=== PATIENT | male | born 1970 | race Caucasian/White ===

== ENCOUNTER → 2017-05-10 | Outpatient (REF) ==
[~2017-05-10] MED LIST: HYDR1TAB PO; LACT10SO33 PO; LOSA50TA6 PO
--- NOTE | 2017-05-10 15:03 | Diagnostic Imaging Report ---
INDICATION: Injury to right knee. AP, oblique, and lateral views of the right knee are obtained. Comparison made with 01/11/2012. There is no definite acute fracture or acute bony abnormality. The patella is somewhat high in location, but this is chronic compared to 01/11/2012. There is a joint effusion present in the suprapatellar recess. There are two calcifications seen anterior to the joint space which may represent loose bodies. IMPRESSION: The patella is somewhat high in position but this is chronic compared with 01/11/2012. There is a joint effusion present. There are two small calcifications overlying the anterior joint space on the lateral view which may be loose bodies. Dictated by: Dictated on workstation # [id number]
== END | disposition home or self-care (01) ==
LOC: OCC 14:13
PROVIDERS: ATTEND Nurse Practitioner Family
CPT/HCPCS: 73562

== ENCOUNTER 2018-08-24 18:56 | Emergency (ER) | payer OTHER ==
[~2018-08-24] VITALS: Ht 190.5 cm; Wt 72.6 kg
--- OUTSIDE RECORDS SUMMARY | 2018-08-24 19:04 | XMS REPORT | Continuity of Care Document ---
Author Author [facility] Organization [facility] Address Unknown Phone Unavailable Allergies Active Description Code Type Severity Reaction Onset Reported/Identified Relationship to Patient Clinical Status Yes ceftriaxone sodium [id number] Drug Allergy Moderate HIVES 04/23/2011 Medications There is no data. Problems Date Dx Coded Attending Type Code Diagnosis Diagnosed By 04/24/2011 Ot 401.9 04/24/2011 Ot 784.0 07/18/2011 Ot 564.00 07/18/2011 Ot 569.42 01/11/2012 Ot 836.3 01/11/2012 Ot 959.7 01/11/2012 Ot E000.0 01/11/2012 Ot E013.4 01/11/2012 Ot E849.7 01/11/2012 Ot E885.9 07/26/2014 LYNDA STUBBS DO Ot 564.00 10/02/2014 Ot 845.00 10/02/2014 Ot E000.8 10/02/2014 Ot E030 10/02/2014 Ot E849.0 10/02/2014 Ot E927.0 10/02/2014 Ot 836.3 10/02/2014 Ot E000.0 10/02/2014 Ot E928.9 10/02/2014 NIDIA ALMONTE, BHARAT Amador Ot 959.7 10/02/2014 NIDIA ALMONTE, BHARAT Amador Ot E000.8 10/02/2014 BHARAT JACOB MD Ot E849.0 10/02/2014 BHARAT JACOB MD Ot E917.9 11/16/2014 Ot 845.00 11/16/2014 Ot E000.8 11/16/2014 Ot E030 11/16/2014 Ot E849.0 11/16/2014 Ot E927.0 11/16/2014 Ot 836.3 11/16/2014 Ot E000.0 11/16/2014 Ot E928.9 11/16/2014 BHARAT JACOB MD Ot 959.7 11/16/2014 BHARAT JACOB MD Ot E000.8 11/16/2014 BHARAT JACOB MD Ot E849.0 11/16/2014 BHARAT JACOB MD Ot E917.9 07/27/2015 Ot 836.3 07/27/2015 Ot E000.0 07/27/2015 Ot E928.9 07/27/2015 BHARAT JACOB MD Ot 959.7 07/27/2015 BHARAT JACOB MD Ot E000.8 07/27/2015 BHARAT JACOB MD Ot E849.0 07/27/2015 BHARAT JACOB MD Ot E917.9 Procedures There is no data. Results There is no data. Encounters ACCT No. Visit Date/Time Discharge Status Pt. Type Provider Facility Loc./Unit Complaint [id number] 05/10/2017 14:13:00 05/10/2017 23:59:59 CLS Outpatient ENRIQUETA CORTÉS [facility] OCC INTERMIT POPPING SINCE DISLOCATION 5 YEARS AGO, NO [id number] 07/27/2015 12:39:00 07/27/2015 23:59:59 CLS Outpatient JAILYN ALMONTE, BERNARD Vidal [facility] LAB WC-PUNCTURE WOUND [id number] 07/26/2014 01:38:00 07/26/2014 02:36:00 DIS Emergency LYNDA STUBBS DO [facility] ER [id number] 07/18/2013 08:49:00 07/18/2013 23:59:59 CLS Outpatient BHARAT JACOB MD [facility] RAD [id number] 10/02/2014 16:21:00 Document Registration [id number] 01/29/2012 15:25:00 Document Registration [id number] 01/11/2012 20:52:00 Document Registration [id number] 07/18/2011 20:12:00 Document Registration [id number] 04/23/2011 22:25:00 Document Registration
[2018-08-24] MEDS ORDERED: ASPIRIN 81 MG CHEW (CHILDREN'S ASA) PO ONE (20:00)
[2018-08-24] MEDS ORDERED: NITROGLYCERIN 0.4 MG SL TABS BTL 25'S SL PRN (20:00)
[2018-08-24 20:11] LABS: BASOPHILS % (AUTO) 1 % (0-10); EOSINOPHILS # (AUTO) 0.2 10^3/uL (0.0-0.3); EOSINOPHILS % (AUTO) 3 % (0-10); HEMATOCRIT 39 % (40-54); HEMOGLOBIN 13.6 G/DL (13.3-17.7); LYMPHOCYTES # (AUTO) 1.4 X 10^3 (1.0-4.0); LYMPHOCYTES % (AUTO) 28 % (12-44); MEAN CORPUSCULAR HEMOGLOBIN 31 PG (25-34); MEAN CORPUSCULAR HGB CONC 35 G/DL (32-36); MEAN CORPUSCULAR VOLUME 89 FL (80-99); MEAN PLATELET VOLUME 9.3 FL (7.4-10.4); MONOCYTES # (AUTO) 0.4 X 10^3 (0.0-1.0); MONOCYTES % (AUTO) 8 % (0-12); NEUTROPHILS % (AUTO) 60 % (42-75); PLATELET COUNT 278 10^3/uL (130-400); RED CELL DISTRIBUTION WIDTH 12.9 % (10.0-14.5)
[2018-08-24 20:29] LABS: ALANINE AMINOTRANSFERASE 18 U/L (0-55); ALBUMIN 4.4 GM/DL (3.2-4.5); ALKALINE PHOSPHATASE 72 U/L (40-136); BILIRUBIN,TOTAL 0.4 MG/DL (0.1-1.0); BUN/CREATININE RATIO 20; CALCIUM 9.2 MG/DL (8.5-10.1); CARBON DIOXIDE 27 MMOL/L (21-32); CHLORIDE 105 MMOL/L (98-107); CREATININE SERUM 0.92 MG/DL (0.60-1.30); GFR ESTIMATED > 60; GLUCOSE 100 MG/DL (70-105); MAGNESIUM 2.5 MG/DL (1.8-2.4); POTASSIUM 4.2 MMOL/L (3.6-5.0); SODIUM 141 MMOL/L (135-145); TOTAL PROTEIN 6.9 GM/DL (6.4-8.2)
[2018-08-24 20:35] LABS: INR 1.1 (0.8-1.4); PROTHROMBIN TIME PATIENT 13.8 SEC (12.2-14.7)
[2018-08-24 20:36] LABS: MYOGLOBIN SERUM 24.7 NG/ML (10.0-92.0)
--- NOTE | 2018-08-24 21:08 | Diagnostic Imaging Report ---
INDICATION: Left anterior chest pain. COMPARISON: 07/26/2014. TECHNIQUE: Single view of the chest was obtained. FINDINGS: Stable dextrocurvature of the thoracic spine associated curvature of the mediastinum. Heart is normal in size. No pneumothorax or pleural effusion. Visualized aspects of the lungs are clear. IMPRESSION: Stable marked dextroscoliosis of the thoracic spine without acute cardiopulmonary process by portable radiography. Dictated by: Dictated on workstation # [id number]
--- NOTE | 2018-08-24 21:22 | ED Chest Pain ---
General Chief Complaint: Chest Pain Stated Complaint: L SIDE CP X 5 DAYS Nursing Triage Note: STATES X5 DAYS LEFT CHEST STATES COMES AND GOES. COMPLAINT OF NUMBNESS AND TINGLING IN AREA. 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 ARENAS Allergies and Home Medications Allergies Coded Allergies: ceftriaxone sodium (Verified Allergy, Intermediate, HIVES, 04/23/11) Home Medications Cyclobenzaprine HCl 5 Mg Tablet, 5-10 MG PO Q8H Prescribed by: LYNDA STUBBS on 08/24/182228 Hydrocodone Bit/Acetaminophen 1 Each Tablet, 1-2 EACH PO Q4HR PRN Prescribed by: NEPTALI MCMANUS on 01/11/122105 Lactulose 10 G/15 Ml Btl, 3 TSP PO TID PRN for CONSTIPATION Prescribed by: LYNDA STUBBS on 07/26/14 0228 Losartan Potassium 50 Mg Tablet, 50 MG PO DAILY, (Reported) Meloxicam 15 Mg Tablet, 15 MG PO DAILY Prescribed by: LYNDA STUBBS on 08/24/182228 Patient Home Medication List Home Medication List Reviewed: Yes Review of Systems Review of Systems Constitutional: no symptoms reported EENTM: No Symptoms Reported Respiratory: No Symptoms Reported Cardiovascular: See HPI, Chest Pain Gastrointestinal: No Symptoms Reported Genitourinary: No Symptoms Reported Musculoskeletal: see HPI Skin: no symptoms reported Psychiatric/Neurological: No Symptoms Reported Endocrine: No Symptoms Reported Hematologic/Lymphatic: No Symptoms Reported Past Cmfvjkn-Bugdrm-Zzoaxg Hx Patient Social History Alcohol Use: Denies Use Recreational Drug Use: No Smoking Status: Never a Smoker Recent Foreign Travel: No Contact w/Someone Who Travel: No Recent Infectious Disease Expo: No Recent Hopitalizations: No Immunizations Up To Date Date of Influenza Vaccine: Apr 30, 2014 Past Medical History Surgeries: Yes (PROSTATE) Eye Surgery, Vasectomy Respiratory: No Cardiac: Yes Hypertension Neurological: No Reproductive Disorders: No Gastrointestinal: Yes Chronic Constipation Musculoskeletal: Yes Scoliosis Endocrine: No Cancer: No Psychosocial: No Integumentary: No Blood Disorders: No Physical Exam Vital Signs Vital Signs - First Documented 08/24/18 19:32 Temp 98.2 Pulse 66 Resp 20 B/P (MAP) 141/60 (87) Pulse Ox 99 O2 Delivery Room Air Capillary Refill : Less Than 3 Seconds Height, Weight, BMI Height: 6'3.00" Weight: 160lbs. oz. 72.547080bf; BMI Method:Estimated General Appearance: No Apparent Distress, WD/WN, Thin HEENT: PERRL/EOMI Neck: Full Range of Motion, Normal Inspection, Non Tender, Supple; No Carotid Bruit, No JVD Respiratory: Chest Non Tender (BUT STATES IT WAS TENDER, BEFORE HE TOOK ASPIRIN ), Normal Breath Sounds, No Accessory Muscle Use, No Respiratory Distress Cardiovascular: Regular Rate, Rhythm, No Edema, No JVD, No Murmur, Normal Peripheral Pulses Gastrointestinal: Normal Bowel Sounds, No Organomegaly, No Pulsatile Mass, Non Tender, Soft Extremity: Normal Capillary Refill, Normal Inspection, Normal Range of Motion, Non Tender, No Calf Tenderness, No Pedal Edema Neurologic/Psychiatric: Alert, Oriented x3, No Motor/Sensory Deficits, Normal Mood/Affect, 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 Skin: Normal Color, Warm/Dry; No Rash Progress/Results/Core Measures Results/Orders Lab Results Laboratory Tests Test 08/24/18 20:04 Range/Units White Blood Count 5.0 4.3-11.0 10^3/uL Red Blood Count 4.39 4.35-5.85 10^6/uL Hemoglobin 13.6 13.3-17.7 G/DL Hematocrit 39 L 40-54 % Mean Corpuscular Volume 89 80-99 FL Mean Corpuscular Hemoglobin 31 25-34 PG Mean Corpuscular Hemoglobin Concent 35 32-36 G/DL Red Cell Distribution Width 12.9 10.0-14.5 % Platelet Count 278 130-400 10^3/uL Mean Platelet Volume 9.3 7.4-10.4 FL Neutrophils (%) (Auto) 60 42-75 % Lymphocytes (%) (Auto) 28 12-44 % Monocytes (%) (Auto) 8 0-12 % Eosinophils (%) (Auto) 3 0-10 % Basophils (%) (Auto) 1 0-10 % Neutrophils # (Auto) 3.0 1.8-7.8 X 10^3 Lymphocytes # (Auto) 1.4 1.0-4.0 X 10^3 Monocytes # (Auto) 0.4 0.0-1.0 X 10^3 Eosinophils # (Auto) 0.2 0.0-0.3 10^3/uL Basophils # (Auto) 0.0 0.0-0.1 10^3/uL Prothrombin Time 13.8 12.2-14.7 SEC INR Comment 1.1 0.8-1.4 Activated Partial Thromboplast Time 37 H 24-35 SEC Sodium Level 141 135-145 MMOL/L Potassium Level 4.2 3.6-5.0 MMOL/L Chloride Level 105 98-107 MMOL/L Carbon Dioxide Level 27 21-32 MMOL/L Anion Gap 9 5-14 MMOL/L Blood Urea Nitrogen 18 7-18 MG/DL Creatinine 0.92 0.60-1.30 MG/DL Estimat Glomerular Filtration Rate > 60 BUN/Creatinine Ratio 20 Glucose Level 100 70-105 MG/DL Calcium Level 9.2 8.5-10.1 MG/DL Corrected Calcium 8.9 8.5-10.1 MG/DL Magnesium Level 2.5 H 1.8-2.4 MG/DL Total Bilirubin 0.4 0.1-1.0 MG/DL Aspartate Amino Transf (AST/SGOT) 20 5-34 U/L Alanine Aminotransferase (ALT/SGPT) 18 0-55 U/L Alkaline Phosphatase 72 40-136 U/L Myoglobin 24.7 10.0-92.0 NG/ML Troponin I < 0.028 <0.028 NG/ML Total Protein 6.9 6.4-8.2 GM/DL Albumin 4.4 3.2-4.5 GM/DL My Orders Orders - LYNDA STUBBS DO Cbc With Automated Diff (08/24/18 19:55) Magnesium (08/24/18 19:55) Chest 1 View, Ap/Pa Only (2/16/19 19:55) Ekg Tracing (08/24/18 19:55) Cardiac Profile 1 (08/24/18 19:55) Comprehensive Metabolic Panel (08/24/18 19:55) Myoglobin Serum (08/24/18 19:55) Protime With Inr (08/24/18 19:55) Partial Thromboplastin Time (08/24/18 19:55) O2 (08/24/18 19:55) Monitor-Rhythm Ecg Trace Only (08/24/18 19:55) Aspirin Chewable Tablet (Baby Aspirin Ch (08/24/18 20:00) Nitroglycerin 0.4 Mg Btl 25's (Nitrostat (08/24/18 20:00) Saline Lock/Iv-Start (08/24/18 19:55) Ct Angio Chest W (08/24/18 20:50) Iohexol Injection (Omnipaque 350 Mg/Ml 1 (08/24/18 22:00) Contrast Received (Contrast Received) (08/24/18 22:00) Ns (Ivpb) (Sodium Chloride 0.9% Ivpb Bag (08/24/18 22:00) Rx-Cyclobenzaprine Tablet (Rx-Flexeril T (08/24/18 22:29) Rx-Cyclobenzaprine Tablet (Rx-Flexeril T (08/24/18 22:29) Medications Given in ED Current Medications Medications Dose Ordered Sig/Afshin Route Start Time Stop Time Status Last Admin Dose Admin Aspirin 324 mg ONCE ONCE PO 08/24/18 20:00 08/24/18 20:01 DC 08/24/18 20:16 324 MG Iohexol 150 ml ONCE ONCE IV 08/24/18 22:00 08/24/18 22:01 DC 08/24/18 22:34 125 ML Nitroglycerin 0.4 mg UD PRN SL 08/24/18 20:00 08/24/18 22:56 DC 08/24/18 20:17 0.4 MG Sodium Chloride 100 ml ONCE ONCE IV 08/24/18 22:00 08/24/18 22:01 DC 08/24/18 22:34 80 ML Vital Signs/I&O 08/24/18 08/24/18 08/24/18 08/24/18 19:32 19:42 19:42 22:34 Temp 98.2 Pulse 66 80 Resp 20 16 B/P (MAP) 141/60 (87) 131/86 (101) Pulse Ox 99 98 99 O2 Delivery Room Air Room Air Room Air Room Air Blood Pressure Mean: 87 Progress Progress Note : Progress Note NO SYMPTOMS DURING ER STAY Initial ECG Impression Date: Aug 24, 2018 Initial ECG Impression Time: 19:42 Initial ECG Rate: 64 Initial ECG Rhythm: Normal Sinus Diagnostic Imaging Comments CXR--NO ACUTE PROCESS, PER RADIOLOGIST REPORT CT CHEST ANGIOGRAM--NO ACUTE PROCESS, + SCOLIOSIS--PER RADIOLOGIST REPORT @ 2220 Reviewed: Reviewed by Me Departure Impression Primary Impression: Left-sided chest wall pain Disposition: HOME, SELF-CARE Condition: Improved Departure-Patient Inst. Referrals: YURI ARENAS MD (PCP/Family) Primary Care Physician Patient Instructions: Chest Pain That Is Not Caused by the Heart (DC), Costochondritis (DC) Add. Discharge Instructions: MOIST HEAT TO AREA AT 20 MINUTE INTERVALS FOLLOW UP WITH YOUR DR NEXT WEEK FOR RECHECK RETURN TO ER IF SYMPTOMS WORSEN All discharge instructions reviewed with patient and/or family. Voiced understanding. Scripts Meloxicam (Mobic) 15 Mg Tablet 15 MG PO DAILY, #10 TAB Prov: LYNDA STUBBS DO 08/24/18 Cyclobenzaprine HCl (Cyclobenzaprine HCl) 5 Mg Tablet 5-10 MG PO Q8H for Muscle Cramps, #15 TAB Prov: LYNDA STUBBS DO 08/24/18 LYNDA STUBBS DO Aug 24, 2018 21:22
[2018-08-24] MEDS ORDERED: NS 100 ML (IVPB) BAG IV ONE (22:00)
[2018-08-24] MEDS ORDERED: RECEIVED CONTRAST (Hold Metformin) IV SCH (22:00)
[2018-08-24] MEDS ORDERED: IOHEXOL 350 MG/ML 150 ML (OMNIPAQUE 350) VIAL IV ONE (22:00)
--- NOTE | 2018-08-24 22:15 | Diagnostic Imaging Report ---
PROCEDURE: CT angiography of the chest with contrast. TECHNIQUE: Multiple contiguous axial images were obtained through the chest after uneventful bolus administration of intravenous contrast. 2D reconstructed CTA MIP acquisitions were also performed. INDICATION: Chest pain for 5 days. COMPARISON: None available. FINDINGS: Vasculature: No pulmonary emboli. No CT evidence of pulmonary hypertension or right ventricular strain. Thoracic aorta is normal in caliber. No aortic dissection or pseudoaneurysm. Heart and mediastinum: Visualized thyroid is normal. No supraclavicular, axillary, or intra-thoracic lymphadenopathy. The heart is normal in size without pericardial effusion. Pleura: No pleural effusion or pneumothorax. Lungs and airway: No endoluminal lesion in the trachea or central bronchi. No pulmonary mass, nodule or consolidation. Upper abdomen: Allowing for the phase of contrast, no acute abnormality in the upper abdomen is seen. Musculoskeletal: Rotatory dextroscoliosis of the thoracic spine. No worrisome focal osseous lesions. IMPRESSION: 1. No acute cardiopulmonary process. Specifically, no pulmonary emboli or acute aortic syndrome. Dictated by: Dictated on workstation # [id number]
[2018-08-24] MEDS ORDERED: CYCL5TAB PO (22:29)
[2018-08-24] MEDS ORDERED: RX-CYCLOBENZAPRINE 10 MG (FLEXERIL) TAB PPK#3 PO STA (22:29)
[2018-08-24] MEDS ORDERED: RX-CYCLOBENZAPRINE 10 MG (FLEXERIL) TAB PPK#3 PO ONE (22:29)
[2018-08-24] MEDS ORDERED: MELO15TA14 PO (22:29)
[2018-08-24 22:34] VITALS: BP 131/86
== END 2018-08-24 22:44 | disposition home or self-care (01) ==
LOC: EDUNIT# 18:56 → ER 18:59
DX: R07.89 Other chest pain (principal); I10 Essential (primary) hypertension; M41.9 Scoliosis, unspecified; Z87.19 Personal history of other diseases of the digestive system; Z98.52 Vasectomy status; Z88.8 Allergy status to other drugs, medicaments and biological substances
CPT/HCPCS: 36415; 71045; 71275; 80053; 83735; 83874; 84484; 85025; 85610; 85730; 93005; 93041

== ENCOUNTER 2018-12-25 04:37 | Observation (INO) | payer OTHER ==
[~2018-12-25] VITALS: Ht 190.5 cm; Wt 70.3 kg
[2018-12-25] VITALS (12 sets, daily range): BP systolic 101–130; BP diastolic 62–82
[~2018-12-25 04:37] MED LIST changes: +CYCL5TAB PO; +MELO15TA14 PO
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
[2018-12-25] MEDS ORDERED: LACTATED RINGERS 1,000 ML IV ONE (05:06)
[2018-12-25] MEDS ORDERED: KETOROLAC 30 MG/ML VIAL IVP STA (05:06)
[2018-12-25 05:14] LABS: BASOPHILS % (AUTO) 0 % (0-10); EOSINOPHILS % (AUTO) 0 % (0-10); HEMATOCRIT 40 % (40-54); HEMOGLOBIN 13.8 G/DL (13.3-17.7); LYMPHOCYTES # (AUTO) 0.9 X 10^3 (1.0-4.0); LYMPHOCYTES % (AUTO) 7 % (12-44); MEAN CORPUSCULAR HEMOGLOBIN 31 PG (25-34); MEAN CORPUSCULAR HGB CONC 34 G/DL (32-36); MEAN CORPUSCULAR VOLUME 89 FL (80-99); MEAN PLATELET VOLUME 9.4 FL (7.4-10.4); MONOCYTES # (AUTO) 0.6 X 10^3 (0.0-1.0); MONOCYTES % (AUTO) 4 % (0-12); NEUTROPHILS # (AUTO) 11.7 X 10^3 (1.8-7.8); NEUTROPHILS % (AUTO) 88 % (42-75); PLATELET COUNT 228 10^3/uL (130-400); RED CELL DISTRIBUTION WIDTH 12.6 % (10.0-14.5); WHITE BLOOD COUNT 13.2 10^3/uL (4.3-11.0)
[2018-12-25] MEDS ORDERED: ONDANSETRON 4 MG/2 ML (SDV) Z0FRAN IVP ONE (05:15)
[2018-12-25] MEDS ORDERED: PANTOPRAZOLE 40 MG (PROTONIX) VIAL IV ONE (05:15)
--- NOTE | 2018-12-25 05:25 | ED Abdominal Pain ---
General Chief Complaint: Abdominal/GI Problems Stated Complaint: ABD PAIN,NAUSEA Source of Information: Patient Exam Limitations: No Limitations History of Present Illness Date Seen by Provider: Dec 25, 2018 Time Seen by Provider: 04:55 Initial Comments PT ARRIVES VIA POV C/O EPIGASTRIC ABDOMINAL PAIN SINCE 1700 YESTERDAY PAIN IS CONSTANT AND GRADUALLY GETTING WORSE NO RADIATION OF PAIN NOTHING WORSENS OR IMPROVES PAIN HAS HAD MILD NAUSEA OFF AND ON, NO VOMITING NO DIARRHEA OR CONSTIPATION, HAD NORMAL BM AT 2300 NO PROBLEMS URINATING NO RELIEF WITH TUMS OR PEPTO BISMOL ATE SMALL MEAL/SNACKS AT 2000, HAD REGULAR LUNCH AND DINNER ( SAME THING ) NO ONE ELSE IS ILL AND OTHERS ATE SAME NO HISTORY OF GI PROBLEMS PT WORKED TONIGHT AT GOT OFF WORK AT 0200 ( WORKS HERE IN HOUSEKEEPING) AND PAIN HAS STEADILY INCREASED. PCP: DR. ARENAS Allergies and Home Medications Allergies Coded Allergies: ceftriaxone sodium (Verified Allergy, Intermediate, HIVES, 04/23/11) Home Medications Cyclobenzaprine HCl 5 Mg Tablet, 5-10 MG PO Q8H Prescribed by: LYNDA STUBBS on 08/24/182228 Hydrocodone Bit/Acetaminophen 1 Each Tablet, 1-2 EACH PO Q4HR PRN Prescribed by: NEPTALI MCMANUS on 01/11/12 210 Lactulose 10 G/15 Ml Btl, 3 TSP PO TID PRN for CONSTIPATION Prescribed by: LYNDA STUBBS on 07/26/14 0228 Losartan Potassium 50 Mg Tablet, 50 MG PO DAILY, (Reported) Meloxicam 15 Mg Tablet, 15 MG PO DAILY Prescribed by: LYNDA STUBBS on 08/24/182228 Review of Systems Review of Systems Constitutional: no symptoms reported Respiratory: No Symptoms Reported Cardiovascular: No Symptoms Reported Gastrointestinal: See HPI, Abdominal Pain; Denies Constipated, Denies Diarrhea; Nausea; Denies Vomiting Genitourinary: No Symptoms Reported Musculoskeletal: no symptoms reported Skin: no symptoms reported Psychiatric/Neurological: No Symptoms Reported Endocrine: No Symptoms Reported Hematologic/Lymphatic: No Symptoms Reported Past Mhxztle-Imeesb-Miaxqr Hx Patient Social History Alcohol Use: Denies Use Recreational Drug Use: No Smoking Status: Never a Smoker Recent Foreign Travel: No Contact w/Someone Who Travel: No Recent Hopitalizations: No Immunizations Up To Date Date of Influenza Vaccine: Apr 30, 2014 Past Medical History Surgeries: Yes (PROSTATE SURGERY ) Eye Surgery, Vasectomy Respiratory: No Cardiac: Yes Hypertension Neurological: No Reproductive Disorders: No Genitourinary: Yes Prostate Problems Gastrointestinal: Yes Chronic Constipation Musculoskeletal: Yes Scoliosis Endocrine: No HEENT: No Cancer: No Psychosocial: No Integumentary: No Blood Disorders: No Physical Exam Vital Signs Capillary Refill : Height/Weight/BMI Height: 6'3.00" Weight: 160lbs. oz. 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, no motor/sensory deficits, alert, normal mood/affect, oriented x 3 Skin: normal color, warm/dry Progress/Results/Core Measures Results/Orders My Orders Orders - LYNDA STUBBS DO Ed Iv/Invasive Line Start (12/25/18 05:06) Ct Abd/Pelv W (Appendicitis) (12/25/18 05:06) Acute Abd Series (12/25/18 05:06) Amylase (12/25/18 05:06) Cbc With Automated Diff (12/25/18 05:06) Comprehensive Metabolic Panel (12/25/18 05:06) Lipase (12/25/18 05:06) Ua Culture If Indicated (12/25/18 05:06) Zofran Iv (12/25/18 05:15) Ed Iv/Invasive Line Start (12/25/18 05:06) Lr 1000ml Iv (12/25/18 05:06) Toradol 30 Mg Ivp (12/25/18 05:06) Pantoprazole Injection (Protonix Injecti (12/25/18 05:15) Departure Departure-Patient Inst. Referrals: YURI ARENAS MD (PCP/Family) Primary Care Physician LYNDA STUBBS DO Dec 25, 2018 05:25
[2018-12-25 05:26] LABS: ALANINE AMINOTRANSFERASE 18 U/L (0-55); ALBUMIN 4.9 GM/DL (3.2-4.5); ALKALINE PHOSPHATASE 85 U/L (40-136); AMYLASE 53 U/L (25-125); BILIRUBIN,TOTAL 0.6 MG/DL (0.1-1.0); BUN/CREATININE RATIO 17; CALCIUM 9.7 MG/DL (8.5-10.1); CARBON DIOXIDE 22 MMOL/L (21-32); CHLORIDE 103 MMOL/L (98-107); CREATININE SERUM 0.96 MG/DL (0.60-1.30); GFR ESTIMATED > 60; GLUCOSE 109 MG/DL (70-105); LIPASE 24 U/L (8-78); POTASSIUM 3.8 MMOL/L (3.6-5.0); SODIUM 138 MMOL/L (135-145); TOTAL PROTEIN 7.5 GM/DL (6.4-8.2)
[2018-12-25 06:44] LABS: BACTERIA,URINE NEGATIVE /HPF; BILIRUBIN,URINE NEGATIVE (NEGATIVE); CLARITY,URINE CLEAR; COLOR,URINE YELLOW; GLUCOSE, URINE (UA) NEGATIVE (NEGATIVE); KETONES,URINE 1+ (NEGATIVE); LEUKOCYTE ESTERASE ,URINE NEGATIVE (NEGATIVE); NITRITE,URINE NEGATIVE (NEGATIVE); PH,URINE 5 (5-9); PROTEIN,URINE NEGATIVE (NEGATIVE); RBC,URINE RARE /HPF; SQUAMOUS EPITHELIAL CELL,UR RARE /HPF; UROBILINOGEN,URINE NORMAL (NORMAL)
--- NOTE | 2018-12-25 07:10 | NUR ---
REPORT FROM DARLINE DAVIES.
--- NOTE | 2018-12-25 07:20 | Diagnostic Imaging Report ---
INDICATION: Nausea and vomiting. FINDINGS: There is rather severe S-type scoliosis. The lungs are well-aerated and clear. There is no free air under the diaphragm. Upright and supine abdomen shows normal stool and gas pattern. No evidence of distended bowel loops. No air-fluid levels. No evidence of constipation. There is contrast within the kidneys and bladder from previous CT scan. IMPRESSION: Scoliosis, otherwise normal abdomen series. Dictated by: Dictated on workstation # [id number]
--- NOTE | 2018-12-25 07:22 | Diagnostic Imaging Report ---
PROCEDURE: CT abdomen and pelvis with contrast, rule out appendicitis. TECHNIQUE: Multiple contiguous axial images were obtained through the abdomen and pelvis after the administration of intravenous contrast. INDICATION: Abdominal pain. FINDINGS: The lung bases are clear. Liver appears normal. Gallbladder and bile ducts are normal. The pancreas and spleen are normal. Adrenal glands are normal. The kidneys are normal. There is normal enhancement of the abdominal organs and vessels. The stomach and small bowel are not distended. There is considerable stool present throughout the colon from the cecum to the rectum. There is no evidence of obstructive process. The appendix is distended and fluid-filled measuring 13 mm in diameter. There is adjacent edema. There is an appendicolith as well. The bladder is distended. There is no free air or free fluid. No intra-abdominal adenopathy. No bony abnormalities. IMPRESSION: Findings are consistent with acute appendicitis. Dictated by: Dictated on workstation # [id number]
[2018-12-25] MEDS ORDERED: PIPERACILLIN/TAZO 4.5 GM/NS 100 ML IV ONE ×2 (08:20)
--- NOTE | 2018-12-25 09:25 | NUR ---
RAFI JERONIMO admitted to room 408-1, with an admitting diagnosis of APPENDICITIS, on 12/25/18 from ED via , accompanied by STAFF AND FAMILY. RAFI JERONIMO introduced to surroundings, call light, bed controls, phone, TV, temperature control, lights, meal times, smoking policy, visitor policy, side rail policy, bathrooms and showers. Patient Rights given to patient in the handbook. RAFI JERONIMO verbalizes understanding that [facility] is not responsible for the loss or damage to any personal effects or valuables that are kept in the patients posession during their hospitalization. RAFI JERONIMO verbalizes understanding of Interdisciplinary Patient Education. Patient and/or family were informed about the Rapid Response Team and its purpose.
[2018-12-25] MEDS ORDERED: D5 1/2 NS W/KCL 20 MEQ/L 1,000 ML IV ONE (09:36)
[2018-12-25] MEDS ORDERED: BUP/EPI 0.5% 1:200,000 (SENSORCAINE) 30 ML VIAL ONE (10:30)
[2018-12-25] MEDS ORDERED: LIDOCAINE 1% INJ 20 ML 20 ML VIAL ONE (10:30)
[2018-12-25] MEDS ORDERED: ONDANSETRON 4 MG/2 ML (SDV) Z0FRAN ONE (10:53)
[2018-12-25] MEDS ORDERED: proPOfol 200 MG/20 ML (DIPRIVAN) VIAL IV ONE (10:53)
[2018-12-25] MEDS ORDERED: fentaNYL INJECTION 100 MCG/2 ML AMP ONE ×2 (10:53→11:19)
[2018-12-25] MEDS ORDERED: SUCCINYLCHOLINE INJ 100 MG/5 ML SYR ONE (10:53)
[2018-12-25] MEDS ORDERED: ROCURONIUM 10 MG/ML 5 ML SYRINGE IV ONE (10:53)
[2018-12-25] MEDS ORDERED: MIDAZOLAM 2 MG/2 ML (VERSED) VIAL ONE (10:54)
[2018-12-25] MEDS ORDERED: LIDOCAINE PF 2% 5 ML (XYLOCAINE) VIAL ONE (10:54)
[2018-12-25] MEDS ORDERED: DESFLURANE (SUPRANE) 15 ML INHAL SOLN ONE (10:54)
[2018-12-25] MEDS: fentaNYL INJECTION 100 MCG/2 ML AMP IV PRN ×2 (11:35→18:43)
[2018-12-25] MEDS ORDERED: NS (IVPB) 50 ML ONE (12:20)
[2018-12-25] MEDS ORDERED: metroNIDAZOLE 500MG/100ML IVPB 100 ML ONE (12:20)
[2018-12-25] MEDS ORDERED: ceFAZolin INJECTION 1,000 MG ONE (12:20)
[2018-12-25] MEDS ORDERED: LACTATED RINGERS 1,000 ML IV SCH (12:30)
[2018-12-25] MEDS ORDERED: ceFAZolin INJECTION 1,000 MG in WATER (STERILE) FOR INJECTION 10 ML IV ONE (12:30)
[2018-12-25] MEDS ORDERED: CATHETER FLUSH 10 ML SYR IV PRN (12:30)
[2018-12-25] MEDS ORDERED: ONDANSETRON 4 MG/2 ML (SDV) Z0FRAN IV PRN ×2 (12:30→17:00)
[2018-12-25] MEDS ORDERED: metroNIDAZOLE 500MG/100ML IVPB 100 ML IV ONE (12:30)
[2018-12-25] MEDS ORDERED: PIPERACILLIN/TAZOBACTAM (BULK) 4.5 GM in NS (IVPB) 100 ML IV ONE (13:00)
[2018-12-25] MEDS ORDERED: GLYCOPYRROLATE 0.2 MG/ML (ROBINUL) 2 ML VIAL ONE (13:41)
[2018-12-25] MEDS ORDERED: NEOSTIGMINE 1 MG/ML 5 ML SYRINGE ONE (13:41)
[2018-12-25] MEDS ORDERED: LACTATED RINGERS 1,000 ML IV PRN (13:45)
[2018-12-25] MEDS ORDERED: MEPERIDINE (DEMEROL) INJ 50 MG/ML IVP ONE (14:15)
[2018-12-25] MEDS ORDERED: HYDROmorphone 2 MG/ML VIAL (DILAUDID) IV ONE (14:15)
[2018-12-25] MEDS ORDERED: morphine INJ 10 MG/ML 1ML (SYR OR VIAL) IVP ONE (14:15)
[2018-12-25] MEDS ORDERED: PROMETHAZINE INJ 25 MG/ML (PHENERGAN) AMP IVP ONE (14:15)
[2018-12-25] MEDS ORDERED: ONDANSETRON 4 MG/2 ML (SDV) Z0FRAN IVP PRN (14:15)
--- NOTE | 2018-12-25 14:49 | Anesthesia-General Post-Op ---
General Patient Condition Mental Status/LOC: Same as Preop Cardiovascular: Satisfactory Nausea/Vomiting: Absent Respiratory: Satisfactory Pain: Controlled Complications: Absent Post Op Complications Complications None Follow Up Care/Instructions Patient Instructions None needed. Anesthesia/Patient Condition Patient Condition Patient is doing well, no complaints, stable vital signs, no apparent adverse anesthesia problems. MARLINE BARRETO DO Dec 25, 2018 14:49
[2018-12-25] MEDS ORDERED: PIPERACILLIN/TAZO 4.5 GM/NS 100 ML IV SCH ×2 (15:00)
[2018-12-25] MEDS ORDERED: LOSA100T57 PO (16:25)
--- NOTE | 2018-12-25 16:25 | NUR ---
PATIENT STATES THE ONLY MEDICATION HE IS CURRENTLY TAKING IS LOSARTAN 50MG DAILY IN THE EVENING. I CALLED [facility] AND VERIFIED THEY FILLED: 07-26-18 LOSARTAN 100MG 1/2 TAB DAILY #90 TABLETS
--- NOTE | 2018-12-25 17:03 | Progress Note-Post Operative ---
Post-Operative Progess Note Surgeon (s)/Air Traffic Control Specialist (s) Surgeon ASH GUADALUPE DO Air Traffic Control Specialist: na Pre-Operative Diagnosis appendicitis Post-Operative Diagnosis same Procedure & Operative Findings Date of Procedure 12/25/18 Procedure Performed/Findings lap appy Anesthesia Type gen Estimated Blood Loss Estimated blood loss (mL): min Specimens/Packing Specimens Removed appendix ASH GUADALUPE DO Dec 25, 2018 17:03
[2018-12-25] MEDS: LACTATED RINGERS 1,000 ML IV SCH (18:42)
[2018-12-25] MEDS: HYDROcodone/APAP 5 MG/325 MG (LORTAB) TAB PO PRN ×2 (18:43→23:02)
[2018-12-26 00:15] VITALS: BP 112/66
[2018-12-26] MEDS ORDERED: PIPERACILLIN/TAZO 4.5 GM/NS 100 ML IV SCH ×2 (01:00)
--- NOTE | 2018-12-26 01:34 | OPERATIVE REPORT ---
DATE OF SERVICE: 12/25/2018 PREOPERATIVE DIAGNOSIS: Acute appendicitis, right lower quadrant abdominal pain. POSTOPERATIVE DIAGNOSIS: Acute appendicitis, right lower quadrant abdominal pain. PROCEDURE: Laparoscopic appendectomy. SURGEON: Ash Kraus DO ANESTHESIA: General. ESTIMATED BLOOD LOSS: Minimal. COMPLICATIONS: None. INDICATIONS: The patient is a 48-year-old male who presented to the Emergency Department with abdominal pain on exam and radiological imaging consistent with appendicitis. The patient was discussed risks and benefits of procedure and wished to proceed with procedure. Consent was signed in the chart. The patient was taken to the operating suite, was prepped and draped in sterile fashion. Timeout was performed. A 12 mm incision made just above the umbilicus and cautery used to dissect down to the fascia, which was then scored, grasped and elevated. The abdomen was then entered. A 0 Vicryl was placed in a [id number] fashion for closure at the end of the case. A balloon trocar was inserted into the abdomen and pneumoperitoneum was achieved. Under direct visualization of the laparoscope, a 5 mm trocar was placed in the suprapubic region and a 5 mm trocar was placed in left lower quadrant. Multiple adhesions present in the right lower quadrant. The appendix was retrocecal and the ileum was severely adhered as well to the right gutter. The ileum had to be taken down with both blunt and LigaSure dissection. The adhesions in the right gutter was then continued to be dissected off in order to get the cecum to be mobilized for the appendix was able to be visualized. The appendix was then visualized. It was swollen, erythematous with phlegmon around it. It was grasped, elevated and continued to be mobilized until the base of the appendix was able to be visualized. A [place] was then used to dissect around the base of the appendix and the Endo-JANIS 2.5 stapler was then fired across the base of the appendix. LigaSure was then used to dissect close to the appendix, the appendix from the mesoappendix. Hemostasis was achieved. Copious amount of irrigation was used to irrigate and suction. Hemostasis was achieved. The appendix was placed in an Endobag and removed through the 12 mm trocar site. The abdomen again was reinspected noting no other pathology and hemostasis being achieved. The abdomen was then desufflated. The trocars were removed. A 0 Vicryl was placed at the beginning of the case, was then tied closing the 12 mm fascial defect. The skin was then closed using 4-0 Monocryl in a subcuticular fashion. The abdomen was then washed and dried and Skin Affix was placed over the incisions. The patient tolerated procedure well without any complications, was taken to recovery room in stable condition. Job ID: [id number] DocumentID: [id number] Dictated Date: 12/25/2018 21:10:27 Pipe Fitter Maintenance Date: 12/26/2018 01:34:06 Dictated By: ASH KRAUS DO
[2018-12-26] MEDS: LACTATED RINGERS 1,000 ML IV SCH (01:46)
[2018-12-26] MEDS: fentaNYL INJECTION 100 MCG/2 ML AMP IV PRN ×2 (01:59→04:00)
[2018-12-26] MEDS: HYDROcodone/APAP 5 MG/325 MG (LORTAB) TAB PO PRN (04:00)
[2018-12-26 04:46] VITALS: BP 103/61
[2018-12-26 08:00] VITALS: BP 110/62
[2018-12-26] MEDS ORDERED: DOCU-143 PO (08:07)
[2018-12-26] MEDS ORDERED: ACHD5005 PO (08:07)
--- NOTE | 2018-12-26 08:09 | Discharge Inst-Simple/Standard ---
Discharge Inst-Standard Discharge Medications New, Converted or Re-Newed RX: RX on Chart Patient Instructions/Follow Up Plan of Care/Instructions/FU: 2 weeks Kraus Activity as Tolerated: No Discharge Diet: Regular Diet Other Inst to Patient Follow up Appt: Make appointment for 2 week. Instructions: No lifting greater than 10 pounds. No strenuous activity. May shower in 24 hours, no tub bath or soaking. Use incentive spirometer at home as directed. No Smoking Skin/Wound Care: You have special glue over incisions it will fall off on its own. Symptoms to Report: Appetite Changes, Extremity Discoloration, Numbness/Tingling, Swelling Increased, Bleeding Excessive, Eyesight Changes, Pain Increased, Urine Color Change, Constipation(Persistent), Fever over 101 degree F, Pain/Pressure in chest, Urinating Difficulty, Cough Up/Vomit Blood, Heart Beat Irreg/Pounding, Pain/Pressure in jaw, Vaginal Bleeding Increase, Cramps in feet or legs, Lightheadedness, Pain/Pressure in shoulder, Diarrhea(Persistent), Memory Changes Suddenly, Questions/Concerns, Weight gain consecutive days, Dizziness/Fainting, Nausea/Vomiting, Shortness of Breath, Weight gain over 2 pounds If questions or concerns contact your physician Or seek help at emergency department. ASH KARUS DO Dec 26, 2018 08:09
--- NOTE | 2018-12-26 08:14 | Progress Note ---
Subjective Date Seen by a Provider: Dec 26, 2018 Time Seen by a Provider: 08:09 Subjective/Events-last exam patient pain controlled. feeling better. tolerating diet wanting to go home denies n/v fever sweats chills shortness of breath or chest pain Objective Exam Vital Signs Date Time Temp Pulse Resp B/P (MAP) Pulse Ox O2 Delivery O2 Flow Rate FiO2 12/26/18 04:46 98.3 51 18 103/61 (75) 96 Room Air 12/26/18 00:15 98.5 53 17 112/66 (81) 98 Room Air 12/25/18 21:06 Room Air 12/25/18 20:39 96.4 54 20 116/67 (83) 100 Room Air 12/25/18 20:00 100 Room Air 10.00 12/25/18 19:52 Room Air 12/25/18 16:18 96.6 60 20 101/63 (76) 99 Room Air 12/25/18 15:19 55 18 114/69 (84) 98 Room Air 12/25/18 15:00 98.2 14 99 Room Air 12/25/18 14:50 14 99 Room Air 12/25/18 14:40 13 99 Room Air 12/25/18 14:30 12 100 Room Air 12/25/18 14:20 14 100 Room Air 12/25/18 14:10 14 100 OxyMask 10 12/25/18 14:07 97.0 16 100 OxyMask 10 12/25/18 12:00 98.0 63 20 130/72 (91) 100 Room Air 12/25/18 09:25 97.8 63 20 130/82 (98) 100 Room Air 12/25/18 09:17 64 18 143/91 (108) 98 Room Air I & O 12/26/18 07:00 Intake Total 5320 ml Output Total 400 ml Balance 4920 ml Capillary Refill : Less Than 3 SecondsLess Than 3 Seconds General Appearance: No Apparent Distress, Chronically ill Neck: Supple Respiratory: Chest Non Tender, No Accessory Muscle Use, No Respiratory Distress Cardiovascular: Regular Rate, Rhythm Gastrointestinal: soft; No distended, No guarding, No rebound; tenderness (incisional) Neurologic/Psychiatric: Alert, Oriented x3, No Motor/Sensory Deficits, Normal Mood/Affect Skin: Normal Color, Warm/Dry Lymphatic: No Adenopathy Assessment/Plan Assessment/Plan Assessment/Plan rlq abd pain appendicitis s/p lap appendectomy doing well tolerating diet incentive spirometry dc home today Final Diagnosis rlq abd pain appendicitis s/p lap appendectomy Clinical Quality Measures DVT/VTE Risk/Contraindication: Risk Factor Score Per Nursin RFS Level Per Nursing on Admit: 3=High ASH GUADALUPE DO Dec 26, 2018 08:14
== END 2018-12-26 10:46 | disposition home or self-care (01) ==
LOC: EDUNIT# 04:37 → ER 04:39 → 4TH 09:00
PROVIDERS: ADMIT Surgery; ATTEND Surgery
DX: K35.80 Unspecified acute appendicitis (principal); I10 Essential (primary) hypertension; Z79.899 Other long term (current) drug therapy
CPT/HCPCS: 36415; 74022; 74177; 80053; 81000; 82150; 83690; 85025; 94664; 96365; 96375

== ENCOUNTER 2020-05-25 08:52 | Emergency (ER) | payer OTHER ==
[~2020-05-25 08:52] MED LIST changes: +ACHD5005 PO; +DOCU-143 PO; +LOSA100T57 PO
== END 2020-05-25 09:13 | disposition home or self-care (01) ==
LOC: EDUNIT# 08:52 → ER 08:54
DX: R05 Cough (principal); R51.9 Headache, unspecified

== ENCOUNTER 2020-11-08 13:29 | Emergency (ER) | payer OTHER ==
[~2020-11-08] VITALS: Ht 190 cm; Wt 72.5 kg
[2020-11-08 13:55] LABS: BASOPHILS # (AUTO) 0.1 10^3/uL (0.0-0.1); BASOPHILS % (AUTO) 1 % (0-10); EOSINOPHILS # (AUTO) 0.2 10^3/uL (0.0-0.3); EOSINOPHILS % (AUTO) 2 % (0-10); HEMATOCRIT 41 % (40-54); HEMOGLOBIN 13.4 g/dL (13.3-17.7); LYMPHOCYTES # (AUTO) 2.5 10^3/uL (1.0-4.0); LYMPHOCYTES % (AUTO) 31 % (12-44); MEAN CORPUSCULAR HEMOGLOBIN 31 pg (25-34); MEAN CORPUSCULAR HGB CONC 33 g/dL (32-36); MEAN CORPUSCULAR VOLUME 93 fL (80-99); MEAN PLATELET VOLUME 9.4 fL (9.0-12.2); MONOCYTES # (AUTO) 0.6 10^3/uL (0.0-1.0); MONOCYTES % (AUTO) 8 % (0-12); NEUTROPHILS # (AUTO) 4.6 10^3/uL (1.8-7.8); NEUTROPHILS % (AUTO) 57 % (42-75); PLATELET COUNT 288 10^3/uL (130-400); WHITE BLOOD COUNT 8.1 10^3/uL (4.3-11.0)
--- NOTE | 2020-11-08 13:56 | ED Fall/Injury ---
General Chief Complaint: Trauma-Non Activation Stated Complaint: FALL FROM CHAIR Source: patient Exam Limitations: no limitations (RAMON PAYNE) History of Present Illness Date Seen by Provider: November 08, 2020 Time Seen by Provider: 13:33 Initial Comments Patient presents ER by EMS from home with chief complaint that he was on a chair putting some nails and lost his balance fell backwards struck the back of his head and has a small laceration which is now hemostatic. This happened just prior to arrival. He denies loss of consciousness. Is having no pain in his neck. He does not tremendous amount of pain in his left hip that he landed on and has difficulty with moving it. No prior injury or surgery there. He has a history of hypertension does not take blood thinners. He rates the pain as an 8 out of 10 at rest and 10 out of 10 when moving. (RAMON PAYNE) Allergies and Home Medications Allergies Coded Allergies: ceftriaxone sodium (Verified Allergy, Intermediate, HIVES, 04/23/11) Home Medications Docusate Sodium 100 Mg Capsule, 100 MG PO BID Prescribed by: ASH GUADALUPE on 12/26/18 0807 Hydrocodone Bit/Acetaminophen 1 Tab Tab, 1-2 TAB PO Q6H PRN for PAIN-MODERATE Prescribed by: ASH GUADALUPE on 12/26/18 0807 Losartan Potassium 100 Mg Tablet, 50 MG PO HS, (Reported) TAKES 1/2 (100MG) TABLET Patient Home Medication List Home Medication List Reviewed: Yes (RAMON PAYNE) Review of Systems Review of Systems Constitutional: No chills, No diaphoresis Eyes: Denies Blindness, Denies Blurred Vision Ears, Nose, Mouth, Throat: denies ear pain, denies ear discharge Respiratory: No cough, No hemoptysis Cardiovascular: No chest pain, No palpitations Gastrointestinal: No abdominal pain, No nausea, No vomiting Genitourinary: No discharge, No dysuria Musculoskeletal: No back pain; joint pain (RAMON PAYNE) All Other Systems Reviewed Negative Unless Noted: Yes (RAMON PAYNE) Past Ujncgvz-Pxwoay-Zfhuxe Hx Patient Social History Alcohol Use: Denies Use Smoking Status: Never a Smoker Recent Hopitalizations: No (RAMON PAYNE) Immunizations Up To Date Date of Influenza Vaccine: Apr 30, 2014 (RAMON PAYNE) Past Medical History Surgeries: Yes (PROSTATE SURGERY ) Eye Surgery, Vasectomy Respiratory: No Cardiac: Yes Hypertension Neurological: No Reproductive Disorders: No Genitourinary: Yes Prostate Problems Gastrointestinal: Yes Chronic Constipation Musculoskeletal: Yes Scoliosis Endocrine: No HEENT: No Cancer: No Psychosocial: No Integumentary: No Blood Disorders: No (RAMON PAYNE) Physical Exam Vital Signs Vital Signs - First Documented 11/08/20 13:30 Temp 35.2 Pulse 79 Resp 18 B/P (MAP) 158/94 (115) Pulse Ox 100 O2 Delivery Room Air (LUIS FREITAS MD) Vital Signs Capillary Refill : (RAMON PAYNE) Height, Weight, BMI Height: 6'3.00" Weight: 155lbs. 0.0oz. [id number]; 19.4 BMI Method:Stated General Appearance: moderate distress, thin HEENT: PERRL/EOMI (3 mm bilateral reactive symmetric), normal ENT inspection (Negative for raygoza sign or raccoon eyes), TMs normal (Negative hemotympanum), pharynx normal Neck: non-tender, full range of motion, normal inspection Cardiovascular: normal peripheral pulses, regular rate, rhythm, no edema Respiratory: lungs clear, normal breath sounds, no respiratory distress, no accessory muscle use Peripheral Pulses: 2+ Dorsalis Pedis (R), 2+ Left Dors-Pedis (L) Gastrointestinal: normal bowel sounds, non tender, soft Extremities: normal capillary refill, other (Tenderness to palpation over the left femur) Neurologic/Psychiatric: no motor/sensory deficits, alert, normal mood/affect, oriented x 3 Skin: normal color, warm/dry, other (Occipital laceration approximately a 2-1/2 cm hemostatic) (RAMON PAYNE) [place] Coma Score Best Eye Response: (4) Open Spontaneously Best Verbal Response: (5) Oriented Best Motor Response: (6) Obeys Commands [place] Total: 15 (RAMON PAYNE) Procedures/Interventions Wound Location: Scalp Other Wound Location occiput Wound Length (cm): 2.5 Wound's Depth, Shape: linear, sub Q Wound Explored: no foreign body removed Irrigated w/ Saline (ccs): 100 Betadine Prep?: Yes Anesthesia: 1% Lidocaine Volume Anesthetic (ccs): 1 Staple Repair: Stapler 35W Number of Sutures: 4 (RAMON PAYNE) Progress/Results/Core Measures Results/Orders Lab Results Laboratory Tests Test 11/08/20 13:40 11/08/20 21:05 Range/Units White Blood Count 8.1 10.1 4.3-11.0 10^3/uL Red Blood Count 4.36 3.58 L 4.30-5.52 10^6/uL Hemoglobin 13.4 11.0 L 13.3-17.7 g/dL Hematocrit 41 32 L 40-54 % Mean Corpuscular Volume 93 90 80-99 fL Mean Corpuscular Hemoglobin 31 31 25-34 pg Mean Corpuscular Hemoglobin Concent 33 34 32-36 g/dL Red Cell Distribution Width 12.5 12.4 10.0-14.5 % Platelet Count 288 203 130-400 10^3/uL Mean Platelet Volume 9.4 9.2 9.0-12.2 fL Immature Granulocyte % (Auto) 1 1 % Neutrophils (%) (Auto) 57 84 H 42-75 % Lymphocytes (%) (Auto) 31 7 L 12-44 % Monocytes (%) (Auto) 8 8 0-12 % Eosinophils (%) (Auto) 2 0 0-10 % Basophils (%) (Auto) 1 0 0-10 % Neutrophils # (Auto) 4.6 8.5 H 1.8-7.8 10^3/uL Lymphocytes # (Auto) 2.5 0.7 L 1.0-4.0 10^3/uL Monocytes # (Auto) 0.6 0.8 0.0-1.0 10^3/uL Eosinophils # (Auto) 0.2 0.0 0.0-0.3 10^3/uL Basophils # (Auto) 0.1 0.0 0.0-0.1 10^3/uL Immature Granulocyte # (Auto) 0.1 0.1 0.0-0.1 10^3/uL Sodium Level 139 135-145 MMOL/L Potassium Level 3.3 L 3.6-5.0 MMOL/L Chloride Level 102 98-107 MMOL/L Carbon Dioxide Level 23 21-32 MMOL/L Anion Gap 14 5-14 MMOL/L Blood Urea Nitrogen 14 7-18 MG/DL Creatinine 0.89 0.60-1.30 MG/DL Estimat Glomerular Filtration Rate > 60 BUN/Creatinine Ratio 16 Glucose Level 95 70-105 MG/DL Calcium Level 9.2 8.5-10.1 MG/DL Corrected Calcium 8.5-10.1 MG/DL Total Bilirubin 0.8 0.1-1.0 MG/DL Aspartate Amino Transf (AST/SGOT) 26 5-34 U/L Alanine Aminotransferase (ALT/SGPT) 36 0-55 U/L Alkaline Phosphatase 72 40-136 U/L Total Protein 7.4 6.4-8.2 GM/DL Albumin 4.6 H 3.2-4.5 GM/DL Neutrophils % (Manual) 85 % Lymphocytes % (Manual) 7 % Monocytes % (Manual) 8 % Blood Morphology Comment NORMAL (LUIS FREITAS MD) My Orders Orders - LUIS FREITAS MD Cbc With Automated Diff (11/08/20 20:39) Manual Differential (11/08/20 21:05) Hydromorphone Injection (Dilaudid Inject (11/08/20 21:30) (LUIS FREITAS MD) Medications Given in ED Current Medications Medications Dose Ordered Sig/Afshin Route Start Time Stop Time Status Last Admin Dose Admin Diphtheria/ Tetanus/Acell Pertussis 0.5 ml ONCE ONCE IM 11/08/20 14:15 11/08/20 14:16 DC 11/08/20 14:22 0.5 ML Fentanyl Citrate 50 mcg ONCE ONCE IVP 11/08/20 14:00 11/08/20 14:01 DC 11/08/20 13:56 50 MCG Fentanyl Citrate 50 mcg ONCE ONCE IVP 11/08/20 14:15 11/08/20 14:16 DC 11/08/20 14:21 50 MCG Fentanyl Citrate 50 mcg ONCE ONCE IVP 11/08/20 15:15 11/08/20 15:16 DC 11/08/20 15:14 50 MCG Fentanyl Citrate 50 mcg ONCE ONCE IVP 11/08/20 15:45 11/08/20 15:46 DC 11/08/20 15:47 50 MCG Hydromorphone HCl 0.5 mg ONCE ONCE IV 11/08/20 18:30 11/08/20 18:31 DC 11/08/20 18:53 0.5 MG Iohexol 100 ml ONCE ONCE IV 11/08/20 15:45 11/08/20 15:46 DC 11/08/20 16:20 92 ML Ketamine HCl 25 mg ONCE ONCE IV 11/08/20 15:45 11/08/20 15:46 DC 11/08/20 15:48 25 MG Lactated Ringer's 1,000 ml @ 0 mls/hr Q0M ONCE IV 11/08/20 15:45 11/08/20 15:46 DC 11/08/20 16:01 1,000 MLS/HR Sodium Chloride 10 ml NEEDED PRN IV 11/08/20 15:45 11/08/20 16:20 10 ML Sodium Chloride 100 ml ONCE ONCE IV 11/08/20 15:45 11/08/20 15:46 DC 11/08/20 16:20 80 ML Sodium Chloride 500 ml @ 0 mls/hr Q0M ONCE IV 11/08/20 14:00 11/08/20 14:01 DC 11/08/20 13:56 1,000 MLS/HR (LUIS FREITAS MD) Vital Signs/I&O 11/08/20 11/08/20 13:30 17:59 Temp 35.2 Pulse 79 82 Resp 18 14 B/P (MAP) 158/94 (115) 151/98 (115) Pulse Ox 100 99 O2 Delivery Room Air Room Air (LUIS FREITAS MD) Progress Progress Note #1: Time: 13:56 Progress Note Plan to give him 50 mcg of IV fentanyl to see how he reacts to it. We will put a c-collar in place and get a CT of his head and C-spine and x-rays of his left hip. Progress Note #2: Time: 15:15 Progress Note C-collar cleared clinically and radiographically. Patient's not having any midline pain and has full range of motion in his neck. Clean his wound up and plan to close it with chris. He has a pelvic ring fractures were going to get some more x-rays of the pelvis. A third dose of fentanyl ordered. (RAMON PAYNE) Progress Note #1: Time: 19:19 Progress Note Patient seen and examined, 50-year-old who had a fall off a chair and suffered fractures of the left ilium, transverse fractures in the lumbar spine and 4 rib fractures on the left. He did have an LOC. Patient appears comfortable at this time vital signs are 151/98 blood pressure and pulse 103. He has had a half a milligram of Dilaudid, 25 mg of ketamine, 150 mcg of fentanyl for pain. He has IV fluids running at 150 cc an hour currently. He is awake alert oriented he does not have any new complaints of shortness of breath or chest pain. No developing abdominal pain. Bilateral lungs are clear with no respiratory distress. Abdomen is soft and nontender. Patient is able to move all of his extremities. He states that he feels like his pain is controlled at the moment. We are awaiting phone call back from Dr. Salmon with [facility] on whether or not he can address his fracture in his pelvis. Patient is updated. Progress Note #2: Time: 20:29 Progress Note [facility] is unable to accept this patient due to the extensive nature of the left ilium fracture extending into the posterior acetabulum. Have contacted for transfer at this time. (LUIS FREITSA MD) Initial ECG Impression Date: November 08, 2020 Initial ECG Impression Time: 15:33 Initial ECG Rate: 73 Initial ECG Rhythm: Normal Sinus Initial ECG Intervals: Normal Initial ECG Impression: Normal, Nonspecific Changes Comment Normal sinus rhythm with an incomplete right bundle branch block. No clinically relevant ST changes. (RAMON PAYNE) Diagnostic Imaging Diagonstic Imaging: CT Plain Films/CT/US/NM/MRI: c-spine, head Comments NAME: RAFI JERONIMO [facility] REC#: [id number] PT STATUS: REG ER : 1970 PHYSICIAN: RAMON PAYNE MD ADMIT DATE: 11/08/20/ER Signed Date of Exam:11/08/20 CT HEAD/CERVICAL SPINE WO PROCEDURE: CT head and CT cervical spine without contrast. TECHNIQUE: Multiple contiguous axial images were obtained through the brain and cervical spine without the use of intravenous contrast. Sagittal and coronal reformations through the cervical spine were then performed. Auto Exposure Controls were utilized during the CT exam to meet ALARA standards for radiation dose reduction. INDICATION: Trauma, fall COMPARISON: None available. FINDINGS: Head: No hyperdense hemorrhage or space-occupying mass. No hydrocephalus or midline shift. No evidence of territorial infarct. Basilar cisterns are patent. Left occipital scalp hematoma. No skull fracture. Near-complete aspiration of bilateral ethmoid sinus. Small air-fluid level in the right maxillary sinus. Mucosal thickening within the frontal sinus also present. Mastoid air cells are clear. Cervical spine: No acute fracture or traumatic malalignment. No high-grade spinal canal narrowing. Airway is patent. No cervical lymphadenopathy. Visualized thyroid is normal. No prevertebral soft tissue swelling. Lung apices are clear. IMPRESSION: 1. No acute intracranial process or skull fracture. Left occipital scalp swelling and small hematoma. 2. No acute fracture or traumatic malalignment of the cervical spine. Dictated by: Dictated on workstation # [id number] Dict: 11/08/20 1451 Trans: 11/08/20 1455 [facility] [id number] Interpreted by: QUAN GIL MD Electronically signed by: QUAN GIL MD 11/08/20 1455 Reviewed: Reviewed by La Diagonstic Imaging: Xray Plain Films/CT/US/NM/MRI: chest Comments [facility] [place] [place] NAME: RAFI JERONIMO [facility] REC#: [id number] PT STATUS: REG ER : 1970 PHYSICIAN: RAMON PAYNE MD ADMIT DATE: 11/08/20/ER Draft Date of Exam:11/08/20 CHEST 1 VIEW, AP/PA ONLY EXAMINATION: Portable supine chest at 2:49 PM. INDICATION: Fell. TECHNIQUE: Two AP views were obtained. FINDINGS: The heart size is within normal limits and stable when compared to 12/25/2018. As noted on the left shoulder exam performed in conjunction with this study, there are slightly displaced fractures involving the lateral aspects of the left 4th, 5th, and 6th ribs. There also appears to be a nondisplaced fracture of the lateral aspect of the left 3rd rib. There is no sign of a pneumothorax on the left but there is a vague area of slightly increased density in the left midlung. The possibility that this is related to a pulmonary contusion should be considered. There is no pleural effusion identified. The mediastinum is not widened. The pronounced dextroscoliosis of the thoracic spine seen previously is again evident and no different. IMPRESSION: 1. There are fractures of the left 3rd, 4th, 5th, and 6th ribs. There is also question of a pulmonary contusion involving the left lung. If further imaging is desired, then a CT of the chest would be recommended. 2. There is no acute abnormality identified otherwise. 3. These results were discussed with Dr. Ramon Payne in the Emergency Room. Dictated on workstation # [id number] Dict: 11/08/20 1528 Trans: 11/08/20 1536 [id number] Interpreted by: ASIM WINTERS MD Electronically signed by: Reviewed: Reviewed by Me Diagonstic Imaging: Xray Plain Films/CT/US/NM/MRI: pelvis, hip (Left) Comments [facility] [place], [place] NAME: RAFI JERONIMO [facility] REC#: [id number] PT STATUS: REG ER : 1970 PHYSICIAN: RAMON PAYNE MD ADMIT DATE: 11/08/20/ER Draft Date of Exam:11/08/20 PELVIS INDICATION: Pelvic pain. Fall. COMPARISON: Hip views from earlier same day. FINDINGS: Single frontal radiographic view of the pelvis was obtained and demonstrates acute mildly displaced comminuted fracture of the left iliac wing. Included portions of the lumbar spine show chronic appearing levoscoliosis. SI joints are heavily obscured. Pubic symphysis is within normal limits. No unexpected radiopaque foreign bodies are seen. IMPRESSION: 1. Acute fracture of the left iliac wing. CT would be of benefit for more detailed evaluation. Dictated on workstation # [id number] Dict: 11/08/20 1538 Trans: 11/08/20 1543 [facility] [id number] Interpreted by: ACE ONEILL MD Electronically signed by: [facility] [place] [place] NAME: RAFI JERONIMO [facility] REC#: [id number] PT STATUS: REG ER : 1970 PHYSICIAN: RAMON PAYNE MD ADMIT DATE: 11/08/20/ER Draft Date of Exam:05/03/21 HIP, LEFT, 2 VIEWS EXAMINATION: Left hip at 2:51 p.m. INDICATION: Fell, hip pain. Two views were obtained. There is no fracture, dislocation or acute bony abnormality of the hip joint itself. However there does appear to be interruption of the lateral cortex of the left ilium. This finding is only visualized on the AP view. I am concerned that this is related to an impacted slightly comminuted fracture. I would recommend that a CT of the pelvis be performed for further study. The hip joint itself is fairly well-maintained and appears similar to the prior exam of 07/26/2014. The soft tissues are unremarkable. IMPRESSION: 1. There is no acute bony abnormality of the hip joint itself. However there does appear to be a comminuted slightly impacted fracture involving the lateral cortex of the left ilium. CT would be recommended for further study. 2. These results were discussed with Dr. Ramon Payne in the Emergency Room. Dictated on workstation # [id number] Dict: 11/08/20 1522 Trans: 11/08/20 1527 [facility] [id number] Interpreted by: ASIM WINTERS MD Electronically signed by: Reviewed: Reviewed by La Diagonstic Imaging: CT Plain Films/CT/US/NM/MRI: chest, abdomen, pelvis Comments NAME: RAFI JERONIMO [facility] REC#: [id number] PT STATUS: REG ER : 1970 PHYSICIAN: RAMON PAYNE MD ADMIT DATE: 11/08/20/ER Draft Date of Exam:11/08/20 CT CHEST/ABDOMEN/PELVIS W PROCEDURE: CT chest, abdomen, and pelvis with contrast. TECHNIQUE: Multiple contiguous axial images were obtained through the chest, abdomen, and pelvis after the administration of intravenous contrast. Auto Exposure Controls were utilized during the CT exam to meet ALARA standards for radiation dose reduction. INDICATION: Fell. Left-sided chest, abdomen and pelvis pain. The previous CTA chest exam performed on 08/24/2018 failed to show any sign of an acute cardiopulmonary abnormality. The plain film examination of the left ribs performed prior to the study did show slightly displaced fracture of the left third rib and nondisplaced fractures of left fourth, fifth and sixth ribs. Those injuries are again evident on this study. The chest exam also raised a question of a pulmonary contusion. However the left lung seems generally clear and well aerated. There is no sign of a contusion or significant pneumothorax. There may be a trace amount of free air along the anterior aspect of the left upper lung. The right lung is generally clear and well aerated. The heart is stable in size. Coronary artery calcifications are again noted. The aorta is not abnormally dilated. The pulmonary arteries were not well opacified but there is no definite defect within the pulmonary arteries to indicate a pulmonary embolus. There is no mediastinal or hilar adenopathy. The thyroid gland was partially obscured by streak artifact. The previous CT abdomen/pelvis exam of 12/25/2018 did show acute appendicitis. The appendix is not well-visualized on this exam and presumably is surgically absent as there do appear to be surgical clips near the tip of the cecum. Correlation with the patient's surgical history would be recommended. The liver, spleen, pancreas, gallbladder, kidneys, adrenals, aorta and inferior vena cava and portal vein show no sign of an acute abnormality. The images through the pelvis again show the comminuted broad fracture extending through the left ilium that was noted on the plain film exam of the left hip performed earlier today. There is also a 13.6 x 14.1 cm soft tissue density about the left ilium. Most likely this is related to hemorrhage infiltrating the musculature. There is no active bleeding identified with certainty. There is also a slightly displaced fracture of the left transverse process of L2 and L3. No other acute bony abnormality is seen. The S-type scoliosis of the thoracolumbar spine noted on the prior study is again evident and no different. IMPRESSION: 1. There are fractures of the left third through sixth ribs but there is no sign of a pulmonary contusion. There may be a trace pneumothorax on the left however. 2. There is no acute cardiopulmonary abnormality noted otherwise. 3. There is a broad irregular comminuted fracture line extending through the left pelvis. There is also considerable infiltration of the musculature in this area by hemorrhage but no active bleeding is identified with certainty. Slightly displaced fractures of the left transverse process of L2 and L3 are also seen. 4. There is no acute abnormality of the abdomen or pelvis noted otherwise. 5. The appendix appears to be surgically absent. These results were discussed Dr. Ramon Payne in the Emergency Room. Dictated on workstation # [id number] Dict: 11/08/20 1622 Trans: 11/08/20 1650 [facility] [phone] Interpreted by: ASIM WINTERS MD Electronically signed by: Reviewed: Reviewed by Me, Discussed w/Radiologist Diagonstic Imaging: Xray Plain Films/CT/US/NM/MRI: other (Left shoulder) Comments [facility] [place] NAME: RAFI JERONIMO [facility] REC#: [id number] PT STATUS: REG ER : 1970 PHYSICIAN: RAMON PAYNE MD ADMIT DATE: 11/08/20/ER Draft Date of Exam:11/08/20 SHOULDER, LEFT, 3 VIEWS EXAMINATION: Left shoulder at 02:53 p.m. INDICATION: Fell, shoulder pain. TECHNIQUE: Three views were obtained. COMPARISON: There are no prior left shoulder studies available for comparison. FINDINGS: There is no fracture, dislocation, or acute bony abnormality involving the shoulder joint. However, there do appear to be slightly displaced fractures of the lateral aspects of the left fourth, fifth, and sixth ribs. There is no sign of an injury to the underlying left lung. Specifically, there is no pneumothorax. There is mild degenerative disease of the glenohumeral joint and moderate degenerative disease of the acromioclavicular joint. The soft tissues about the shoulder joint are unremarkable. IMPRESSION: 1. There is no acute bony abnormality of the shoulder itself. However, there are slightly displaced fractures involving the lateral aspects of the left fourth, fifth, and sixth ribs. 2. There is no evidence for an injury to the left lung. Reportedly, a chest exam is pending for further study however. Dictated on workstation # [id number] Dict: 11/08/20 1525 Trans: 11/08/20 [id number] Interpreted by: ASIM WINTERS MD Electronically signed by: Reviewed: Reviewed by Me (RAMON PAYNE) Consults #1: Consulting Physician: DEN MUNGUIA MD Consults Notes He recommends we consult with somebody who does pelvis surgery such as Dr. Salmon. Consults #2: Consulting Physician: MAICO DAMON DO Consults Notes 1819: Discussed the case with Dr. Damon, trauma surgeon on-call. He agrees with disposition to a tertiary center. (RAMON PAYNE) Transfer of Care Time: 18:57 Care transferred to: Dr. Freitas (RAMON PAYNE) Departure Impression Primary Impression: Fall from chair Qualified Codes: W07.XXXA - Fall from chair, initial encounter Additional Impressions: Fracture of left pelvis Qualified Codes: S32.302A - Unspecified fracture of left ilium, initial encounter for closed fracture Fracture of transverse process of spine without spinal cord lesion Multiple fractures of ribs of left side Qualified Codes: S22.42XA - Multiple fractures of ribs, left side, initial encounter for closed fracture Laceration of occipital scalp Qualified Codes: S01.01XA - Laceration without foreign body of scalp, initial encounter Disposition: XF [facility] Condition: Stable Transfer Transfer Reason: Exceeds level of care Transfer Progress Notes Discussed the case with Dr. Salmon, trauma surgeon at [facility]. He will review the images once they are uploaded and call us back. 1900: [facility] called back and said Dr. Salmon is in surgery and they do have the imaging and he will review it as soon as he gets out. Method of Transfer: EMS (RAMON PAYNE) Time Spoke to Accepting Phy: 20:30 Transfer Progress Notes Discussed with transfer center, Dr. Ivey, trauma surgeon accepts the patient for admission Transfer Time: 21:36 Transfer Facility: [facility] (LUIS FREITAS MD) Departure-Patient Inst. Referrals: BHARAT JACOB MD (PCP/Family) Primary Care Physician RAMON PAYNE November 08, 2020 13:56 LUIS FREITAS MD November 08, 2020 19:21
[2020-11-08 14:00] LABS: ALBUMIN 4.6 GM/DL (3.2-4.5)
[2020-11-08] MEDS ORDERED: fentaNYL INJ 100 MCG/2 ML AMP IVP ONE ×4 (14:00→15:45)
[2020-11-08] MEDS ORDERED: NS IV 500 ML 500 ML IV ONE (14:00)
[2020-11-08 14:01] LABS: CHLORIDE 102 MMOL/L (98-107); POTASSIUM 3.3 MMOL/L (3.6-5.0); SODIUM 139 MMOL/L (135-145)
[2020-11-08 14:02] LABS: CALCIUM 9.2 MG/DL (8.5-10.1)
[2020-11-08 14:03] LABS: GLUCOSE 95 MG/DL (70-105); TOTAL PROTEIN 7.4 GM/DL (6.4-8.2)
[2020-11-08 14:04] LABS: CARBON DIOXIDE 23 MMOL/L (21-32)
[2020-11-08 14:05] LABS: BILIRUBIN,TOTAL 0.8 MG/DL (0.1-1.0)
[2020-11-08 14:06] LABS: ALKALINE PHOSPHATASE 72 U/L (40-136); CREATININE SERUM 0.89 MG/DL (0.60-1.30); GFR ESTIMATED > 60
[2020-11-08 14:08] LABS: BUN/CREATININE RATIO 16
[2020-11-08 14:09] LABS: ALANINE AMINOTRANSFERASE 36 U/L (0-55)
[2020-11-08] MEDS ORDERED: TETANUS,DIPTH,PERTUSS P/F (BOOSTRIX) 0.5 ML VIAL IM ONE (14:15)
--- NOTE | 2020-11-08 14:56 | Diagnostic Imaging Report ---
PROCEDURE: CT head and CT cervical spine without contrast. TECHNIQUE: Multiple contiguous axial images were obtained through the brain and cervical spine without the use of intravenous contrast. Sagittal and coronal reformations through the cervical spine were then performed. Auto Exposure Controls were utilized during the CT exam to meet ALARA standards for radiation dose reduction. INDICATION: Trauma, fall COMPARISON: None available. FINDINGS: Head: No hyperdense hemorrhage or space-occupying mass. No hydrocephalus or midline shift. No evidence of territorial infarct. Basilar cisterns are patent. Left occipital scalp hematoma. No skull fracture. Near-complete aspiration of bilateral ethmoid sinus. Small air-fluid level in the right maxillary sinus. Mucosal thickening within the frontal sinus also present. Mastoid air cells are clear. Cervical spine: No acute fracture or traumatic malalignment. No high-grade spinal canal narrowing. Airway is patent. No cervical lymphadenopathy. Visualized thyroid is normal. No prevertebral soft tissue swelling. Lung apices are clear. IMPRESSION: 1. No acute intracranial process or skull fracture. Left occipital scalp swelling and small hematoma. 2. No acute fracture or traumatic malalignment of the cervical spine. Dictated by: Dictated on workstation # [id number]
--- NOTE | 2020-11-08 15:27 | Diagnostic Imaging Report ---
EXAMINATION: Left hip at 2:51 p.m. INDICATION: Fell, hip pain. Two views were obtained. There is no fracture, dislocation or acute bony abnormality of the hip joint itself. However there does appear to be interruption of the lateral cortex of the left ilium. This finding is only visualized on the AP view. I am concerned that this is related to an impacted slightly comminuted fracture. I would recommend that a CT of the pelvis be performed for further study. The hip joint itself is fairly well-maintained and appears similar to the prior exam of 07/26/2014. The soft tissues are unremarkable. IMPRESSION: 1. There is no acute bony abnormality of the hip joint itself. However there does appear to be a comminuted slightly impacted fracture involving the lateral cortex of the left ilium. CT would be recommended for further study. 2. These results were discussed with Dr. Ramon Payne in the Emergency Room. Dictated by: Dictated on workstation # [id number]
--- NOTE | 2020-11-08 15:34 | Diagnostic Imaging Report ---
EXAMINATION: Left shoulder at 02:53 p.m. INDICATION: Fell, shoulder pain. TECHNIQUE: Three views were obtained. COMPARISON: There are no prior left shoulder studies available for comparison. FINDINGS: There is no fracture, dislocation, or acute bony abnormality involving the shoulder joint. However, there do appear to be slightly displaced fractures of the lateral aspects of the left fourth, fifth, and sixth ribs. There is no sign of an injury to the underlying left lung. Specifically, there is no pneumothorax. There is mild degenerative disease of the glenohumeral joint and moderate degenerative disease of the acromioclavicular joint. The soft tissues about the shoulder joint are unremarkable. IMPRESSION: 1. There is no acute bony abnormality of the shoulder itself. However, there are slightly displaced fractures involving the lateral aspects of the left fourth, fifth, and sixth ribs. 2. There is no evidence for an injury to the left lung. Reportedly, a chest exam is pending for further study however. Dictated by: Dictated on workstation # [id number]
--- NOTE | 2020-11-08 15:37 | Diagnostic Imaging Report ---
EXAMINATION: Portable supine chest at 2:49 PM. INDICATION: Fell. TECHNIQUE: Two AP views were obtained. FINDINGS: The heart size is within normal limits and stable when compared to 12/25/2018. As noted on the left shoulder exam performed in conjunction with this study, there are slightly displaced fractures involving the lateral aspects of the left 4th, 5th, and 6th ribs. There also appears to be a nondisplaced fracture of the lateral aspect of the left 3rd rib. There is no sign of a pneumothorax on the left but there is a vague area of slightly increased density in the left midlung. The possibility that this is related to a pulmonary contusion should be considered. There is no pleural effusion identified. The mediastinum is not widened. The pronounced dextroscoliosis of the thoracic spine seen previously is again evident and no different. IMPRESSION: 1. There are fractures of the left 3rd, 4th, 5th, and 6th ribs. There is also question of a pulmonary contusion involving the left lung. If further imaging is desired, then a CT of the chest would be recommended. 2. There is no acute abnormality identified otherwise. 3. These results were discussed with Dr. Ramon Payne in the Emergency Room. Dictated by: Dictated on workstation # [id number]
--- NOTE | 2020-11-08 15:43 | Diagnostic Imaging Report ---
INDICATION: Pelvic pain. Fall. COMPARISON: Hip views from earlier same day. FINDINGS: Single frontal radiographic view of the pelvis was obtained and demonstrates acute mildly displaced comminuted fracture of the left iliac wing. Included portions of the lumbar spine show chronic appearing levoscoliosis. SI joints are heavily obscured. Pubic symphysis is within normal limits. No unexpected radiopaque foreign bodies are seen. IMPRESSION: 1. Acute fracture of the left iliac wing. CT would be of benefit for more detailed evaluation. Dictated by: Dictated on workstation # [id number]
[2020-11-08] MEDS ORDERED: IOHEXOL 350 MG/ML 100 ML (OMNIPAQUE 350) VIAL IV ONE (15:45)
[2020-11-08] MEDS ORDERED: KETAMINE/NaCl 50 MG/5 ML SYRINGE (ED ONLY) IV ONE (15:45)
[2020-11-08] MEDS ORDERED: CATHETER FLUSH 10 ML SYR IV PRN (15:45)
[2020-11-08] MEDS ORDERED: LACTATED RINGERS 1,000 ML IV ONE (15:45)
[2020-11-08] MEDS ORDERED: HOLD METFORMIN - RECEIVED CONTRAST 20 ML VIAL IV SCH (15:45)
[2020-11-08] MEDS ORDERED: NS 100 ML (IVPB) BAG IV ONE (15:45)
--- NOTE | 2020-11-08 16:50 | Diagnostic Imaging Report ---
PROCEDURE: CT chest, abdomen, and pelvis with contrast. TECHNIQUE: Multiple contiguous axial images were obtained through the chest, abdomen, and pelvis after the administration of intravenous contrast. Auto Exposure Controls were utilized during the CT exam to meet ALARA standards for radiation dose reduction. INDICATION: Fell. Left-sided chest, abdomen and pelvis pain. The previous CTA chest exam performed on 08/24/2018 failed to show any sign of an acute cardiopulmonary abnormality. The plain film examination of the left ribs performed prior to the study did show slightly displaced fracture of the left third rib and nondisplaced fractures of left fourth, fifth and sixth ribs. Those injuries are again evident on this study. The chest exam also raised a question of a pulmonary contusion. However the left lung seems generally clear and well aerated. There is no sign of a contusion or significant pneumothorax. There may be a trace amount of free air along the anterior aspect of the left upper lung. The right lung is generally clear and well aerated. The heart is stable in size. Coronary artery calcifications are again noted. The aorta is not abnormally dilated. The pulmonary arteries were not well opacified but there is no definite defect within the pulmonary arteries to indicate a pulmonary embolus. There is no mediastinal or hilar adenopathy. The thyroid gland was partially obscured by streak artifact. The previous CT abdomen/pelvis exam of 12/25/2018 did show acute appendicitis. The appendix is not well-visualized on this exam and presumably is surgically absent as there do appear to be surgical clips near the tip of the cecum. Correlation with the patient's surgical history would be recommended. The liver, spleen, pancreas, gallbladder, kidneys, adrenals, aorta and inferior vena cava and portal vein show no sign of an acute abnormality. The images through the pelvis again show the comminuted broad fracture extending through the left ilium that was noted on the plain film exam of the left hip performed earlier today. There is also a 13.6 x 14.1 cm soft tissue density about the left ilium. Most likely this is related to hemorrhage infiltrating the musculature. There is no active bleeding identified with certainty. There is also a slightly displaced fracture of the left transverse process of L2 and L3. No other acute bony abnormality is seen. The S-type scoliosis of the thoracolumbar spine noted on the prior study is again evident and no different. IMPRESSION: 1. There are fractures of the left third through sixth ribs but there is no sign of a pulmonary contusion. There may be a trace pneumothorax on the left however. 2. There is no acute cardiopulmonary abnormality noted otherwise. 3. There is a broad irregular comminuted fracture line extending through the left pelvis. There is also considerable infiltration of the musculature in this area by hemorrhage but no active bleeding is identified with certainty. Slightly displaced fractures of the left transverse process of L2 and L3 are also seen. 4. There is no acute abnormality of the abdomen or pelvis noted otherwise. 5. The appendix appears to be surgically absent. These results were discussed Dr. Ramon Payne in the Emergency Room. Dictated by: Dictated on workstation # [id number]
[2020-11-08] MEDS ORDERED: HYDROmorphone 2 MG/ML VIAL (DILAUDID) IV ONE ×2 (18:30→21:30)
[2020-11-08] MEDS ORDERED: LACTATED RINGERS 1,000 ML IV SCH (19:00)
[2020-11-08 21:10] LABS: BASOPHILS % (AUTO) 0 % (0-10); EOSINOPHILS % (AUTO) 0 % (0-10); HEMATOCRIT 32 % (40-54); LYMPHOCYTES # (AUTO) 0.7 10^3/uL (1.0-4.0); LYMPHOCYTES % (AUTO) 7 % (12-44); MEAN CORPUSCULAR HEMOGLOBIN 31 pg (25-34); MEAN CORPUSCULAR HGB CONC 34 g/dL (32-36); MEAN CORPUSCULAR VOLUME 90 fL (80-99); MEAN PLATELET VOLUME 9.2 fL (9.0-12.2); MONOCYTES # (AUTO) 0.8 10^3/uL (0.0-1.0); MONOCYTES % (AUTO) 8 % (0-12); NEUTROPHILS # (AUTO) 8.5 10^3/uL (1.8-7.8); NEUTROPHILS % (AUTO) 84 % (42-75); PLATELET COUNT 203 10^3/uL (130-400); WHITE BLOOD COUNT 10.1 10^3/uL (4.3-11.0)
[2020-11-08 21:32] LABS: LYMPHOCYTES % (MANUAL) 7 %; MONOCYTES % (MANUAL) 8 %; NEUTROPHILS % (MANUAL) 85 %; RBC MORPH NORMAL
[2020-11-08 21:42] VITALS: BP 137/85
== END 2020-11-08 21:42 | disposition short-term general hospital (02) ==
LOC: EDUNIT# 13:29 → ER 13:30
DX: S32.9XXA Fracture of unspecified parts of lumbosacral spine and pelvis, initial encounter for closed fracture (principal); S22.42XA Multiple fractures of ribs, left side, initial encounter for closed fracture; S01.01XA Laceration without foreign body of scalp, initial encounter; I10 Essential (primary) hypertension; R40.2410 Glasgow coma scale score 13-15, unspecified time; Z23 Encounter for immunization; Z88.1 Allergy status to other antibiotic agents; Z79.899 Other long term (current) drug therapy; W07.XXXA Fall from chair, initial encounter
CPT/HCPCS: 36415; 70450; 71045; 71260; 72125; 72170; 73030; 73502; 74177; 80053; 85007; 85025; 85027; 90471; 90715; 93005; 96361; 96374; 96375; 96376

== ENCOUNTER 2021-02-03 10:19 | Outpatient (RCR) | payer OTHER | END 2021-02-03 12:00 | disposition home or self-care (01) | PROVIDERS: ATTEND Physical Medicine & Rehabilitation | DX: S32.302D Unspecified fracture of left ilium, subsequent encounter for fracture with routine healing (principal); S22.42XD Multiple fractures of ribs, left side, subsequent encounter for fracture with routine healing; W07.XXXD Fall from chair, subsequent encounter ==

== ENCOUNTER 2021-12-14 05:34 | Outpatient (CLI) | payer OTHER ==
[~2021-12-14] VITALS: Ht 190.5 cm; Wt 78.8 kg
[2021-12-14] MEDS ORDERED: TRZ50T PO (14:44)
[2021-12-14] MEDS ORDERED: PNT400TCR PO (14:44)
[2021-12-14] MEDS ORDERED: LOSA100T57 PO (14:44)
[2021-12-14] MEDS ORDERED: TMSL.4C PO (14:44)
[2021-12-14] MEDS ORDERED: LEVO500T83 PO (14:44)
== END 2021-12-14 14:45 | disposition home or self-care (01) ==
LOC: PREOP 05:34
PROVIDERS: ATTEND Surgery
DX: Z01.818 Encounter for other preprocedural examination (principal)

== ENCOUNTER 2021-12-27 06:56 | Day surgery (SDC) | payer OTHER ==
[~2021-12-27] VITALS: Ht 190.5 cm; Wt 78.8 kg
[~2021-12-27 06:56] MED LIST changes: +LEVO500T83 PO; +PNT400TCR PO; +TMSL.4C PO; +TRZ50T PO
[2021-12-27] MEDS ORDERED: LACTATED RINGERS 1,000 ML IV STA (07:04)
[2021-12-27] MEDS ORDERED: PROPOFOL INJECTION 50 ML IV ONE (07:13)
[2021-12-27 07:20] VITALS: BP 133/84
[2021-12-27 08:20] VITALS: BP 96/65
--- NOTE | 2021-12-27 08:20 | Progress Note-Post Operative ---
Post-Operative Progess Note Surgeon (s)/Resident Care Aid (s) Surgeon ASH GUADALUPE DO Resident Care Aid: na Pre-Operative Diagnosis screening colonoscopy family hx colon cancer Post-Operative Diagnosis transverse colon polyp, fibroepithelial polyp anus Procedure & Operative Findings Date of Procedure 12/27/21 Procedure Performed/Findings colonoscopy c hot bx polypectomy Anesthesia Type per software product manager Estimated Blood Loss Estimated blood loss (mL): none Specimens/Packing Specimens Removed transverse colon polyp ASH GUADALUPE DO Dec 27, 2021 08:20
--- NOTE | 2021-12-27 08:21 | Discharge Inst-Simple/Standard ---
Discharge Inst-Standard Patient Instructions/Follow Up Plan of Care/Instructions/FU: 2 weeks Nayana Activity as Tolerated: Yes Discharge Diet: Regular Diet ASH GUADALUPE DO Dec 27, 2021 08:21
--- NOTE | 2021-12-27 08:23 | Anesthesia-General Post-Op ---
MAC Patient Condition Mental Status/LOC: Same as Preop Cardiovascular: Satisfactory Nausea/Vomiting: Absent Respiratory: Satisfactory Pain: Controlled Complications: Absent Post Op Complications Complications None Follow Up Care/Instructions Patient Instructions None needed. Anesthesiology Discharge Order Discharge Order Patient is doing well, no complaints, stable vital signs, no apparent adverse anesthesia problems. No complications reported per nursing. LANDY SCHULTZ CRNA Dec 27, 2021 08:23
[2021-12-27 08:25] VITALS: BP 98/65
[2021-12-27 08:30] VITALS: BP 102/63
[2021-12-27 09:15] VITALS: BP 113/76
--- NOTE | 2021-12-27 13:15 | OPERATIVE REPORT ---
DATE OF SERVICE: 12/27/2021 PREOPERATIVE DIAGNOSES: Screening colonoscopy, family history of colon cancer. POSTOPERATIVE DIAGNOSIS: Transverse colon polyp, fibroepithelial polyp anus PROCEDURE: Colonoscopy with hot biopsy polypectomy x1. SURGEON: Ash Kraus DO ANESTHESIA: Per TRIMMING ASSEMBLER. ESTIMATED BLOOD LOSS: None. COMPLICATIONS: None. INDICATIONS: The patient is a 51-year-old male needing screening colonoscopy. He understands risks and benefits of procedure and wishes to proceed. Consent was signed in the chart. DESCRIPTION OF PROCEDURE: The patient was taken to endoscopy suite, placed in left lateral recumbent position. Timeout was performed. Digital rectal exam was performed, fibroepithelial polyp palpated. No other polyps, masses or ulcerations. Scope was inserted in the rectum and advanced all the way to cecum with minimal difficulty. Prep was adequate. Scope was then slowly retracted back. No polyps, masses or ulcerations in the cecum, in the ascending colon. In the transverse colon, a small polyp was present, which hot biopsy polypectomy was performed. Scope was then continuously retracted back. No polyps, masses or ulcerations in remainder of the transverse, descending or sigmoid colon. Once in the rectum, scope was retroflexed noting fibroepithelial polyp. No other pathology. Scope was returned to its normal position, slowly withdrawn until completely removed. The patient tolerated the procedure well without any complications, taken to recovery room in stable condition. RECOMMENDATIONS: The patient will follow up on biopsy of the colon polyp. The patient also with fibroepithelial polyp, the larger would consider excision in the operating room. The patient will need repeat colonoscopy in 5 years. Job ID: [id number] DocumentID: [id number] Dictated Date: 12/27/2021 08:23:53 Global Regulatory Lead Date: 12/27/2021 13:14:58 Dictated By: ASH KRAUS DO [facility]
== END 2021-12-27 09:15 | disposition home or self-care (01) ==
LOC: ENDO 06:56
PROVIDERS: ATTEND Surgery
DX: Z12.11 Encounter for screening for malignant neoplasm of colon (principal); K63.5 Polyp of colon; K62.89 Other specified diseases of anus and rectum; Z80.0 Family history of malignant neoplasm of digestive organs; Z88.1 Allergy status to other antibiotic agents

== ENCOUNTER 2022-02-02 05:31 | Outpatient (CLI) | payer OTHER ==
[~2022-02-02] VITALS: Ht 190.5 cm; Wt 78.7 kg
== END 2022-02-02 16:04 ==
LOC: PREOP 05:31
PROVIDERS: ATTEND Surgery
DX: Z01.818 Encounter for other preprocedural examination (principal)

== ENCOUNTER 2022-02-09 06:09 | Day surgery (SDC) | payer OTHER ==
[2022-02-09] VITALS (11 sets, daily range): BP systolic 74–130; BP diastolic 44–80
[~2022-02-09] VITALS: Ht 190 cm; Wt 78.7 kg
[2022-02-09] MEDS: LACTATED RINGERS 1,000 ML IV PRN ×2 (07:04→09:40)
[2022-02-09] MEDS ORDERED: LIDOCAINE/EPI 2% 1:200,00 (XYLOCAINE) 20 ML VIAL ONE (07:23)
[2022-02-09] MEDS ORDERED: LIDOCAINE PF 2% 5 ML (XYLOCAINE) VIAL ONE (07:34)
[2022-02-09] MEDS ORDERED: fentaNYL INJ 100 MCG/2 ML AMP ONE (07:34)
[2022-02-09] MEDS ORDERED: SEVOFLURANE (ULTANE) 15 ML INHAL SOLN ONE ×2 (07:34→08:55)
[2022-02-09] MEDS ORDERED: MIDAZOLAM 2 MG/2 ML (VERSED) VIAL ONE (07:34)
[2022-02-09] MEDS ORDERED: proPOfol 200 MG/20 ML (DIPRIVAN) VIAL IV ONE (07:34)
[2022-02-09] MEDS ORDERED: ONDANSETRON 4 MG/2 ML (SDV) Z0FRAN ONE (07:34)
--- NOTE | 2022-02-09 08:17 | Progress Note-Pre Operative ---
Pre-Operative Progress Note Date of Available H&P: Jan 18, 2022 Date H&P Reviewed: Feb 09, 2022 Time H&P Reviewed: 08:17 History & Physical: H&P Reviewed, Patient Examed, No changes noted Pre-Operative Diagnosis: anal polyp ASH GUADALUPE DO Feb 09, 2022 08:17
[2022-02-09] MEDS ORDERED: CLINDAMYCIN 600 MG/50 ML IVPB 50 ML IV ONE (08:21)
[2022-02-09] MEDS ORDERED: LIDOCAINE JELLY 2% 6 ML SYRINGE ONE (08:43)
--- NOTE | 2022-02-09 09:19 | Anesthesia-General Post-Op ---
General Patient Condition Mental Status/LOC: Same as Preop Cardiovascular: Satisfactory Nausea/Vomiting: Absent Respiratory: Satisfactory Pain: Controlled Complications: Absent Post Op Complications Complications None Follow Up Care/Instructions Patient Instructions None needed. Anesthesia/Patient Condition Patient Condition Patient is doing well, no complaints, stable vital signs, no apparent adverse anesthesia problems. No complications reported per nursing. BRYAN NUNN CRNA Feb 09, 2022 09:19
--- NOTE | 2022-02-09 09:31 | Progress Note-Post Operative ---
Post-Operative Progess Note Surgeon (s)/Predator Control Trapper (s) Surgeon ASH GUADALUPE DO Predator Control Trapper: na Pre-Operative Diagnosis anal polyp Post-Operative Diagnosis same Procedure & Operative Findings Date of Procedure 02/09/22 Procedure Performed/Findings excision of anal polyp Anesthesia Type general Estimated Blood Loss Estimated blood loss (mL): minimal Specimens/Packing Specimens Removed anal polyp ASH GUADALUPE DO Feb 09, 2022 09:31
--- NOTE | 2022-02-09 09:33 | Discharge Inst-Simple/Standard ---
Discharge Inst-Standard Patient Instructions/Follow Up Plan of Care/Instructions/FU: 2 weeks Nayana Activity as Tolerated: Yes Discharge Diet: Regular Diet Other Inst to Patient Follow up Appt: Make appointment for 2 week. Instruction May shower in 24 hours, no tub bath or soaking. Use incentive spirometer at home as directed. No Smoking Skin/Wound Care: Keep area clean and dry. If plug at anus not expelled within 24 hours remove it. Leave the sutures, do not pull the sutures (white strings). Symptoms to Report: Appetite Changes, Extremity Discoloration, Numbness/Tingling, Swelling Increased, Bleeding Excessive, Eyesight Changes, Pain Increased, Urine Color Change, Constipation(Persistent), Fever over 101 degree F, Pain/Pressure in chest, Urinating Difficulty, Cough Up/Vomit Blood, Heart Beat Irreg/Pounding, Pain/Pressure in jaw, Vaginal Bleeding Increase, Cramps in feet or legs, Lightheadedness, Pain/Pressure in shoulder, Diarrhea(Persistent), Memory Changes Suddenly, Questions/Concerns, Weight gain consecutive days, Dizziness/Fainting, Nausea/Vomiting, Shortness of Breath, Weight gain over 2 pounds If questions or concerns contact your physician Or seek help at emergency department. ASH GUADALUPE DO Feb 09, 2022 09:33
--- NOTE | 2022-02-10 04:45 | OPERATIVE REPORT ---
DATE OF SERVICE: 02/09/2022 PREOPERATIVE DIAGNOSIS: Anal polyp. POSTOPERATIVE DIAGNOSIS: Anal polyp. PROCEDURE: Excision of anal polyp 1 cm x 0.5 cm. SURGEON: Ash Kraus DO. ANESTHESIA: General. ESTIMATED BLOOD LOSS: Minimal. COMPLICATIONS: None. INDICATIONS: The patient is a 52-year-old male with anal polyp. He was explained risks and benefits of procedure and wishes to proceed. Consent was signed in the chart. DESCRIPTION OF PROCEDURE: The patient was taken to the operating suite, was prepped and draped in sterile fashion. Timeout was performed. He was in lithotomy position. Local anesthetic was infiltrated. A 15-blade scalpel was used to make an elliptical incision around the polyp 1 cm x 0.5 cm and polyp was removed. The mucosal defect was then closed using 3-0 Vicryl in a [id number] fashion. Hemostasis had been achieved. A plug was inserted just inside the anus to apply pressure at the area. The area was then washed and dried. The patient tolerated procedure well without any complications and taken to recovery room in stable condition. Job ID: [id number] DocumentID: [id number] Dictated Date: 02/09/2022 19:54:44 Concrete Worker Date: 02/10/2022 04:45:00 Dictated By: ASH KRAUS DO
== END 2022-02-09 11:30 | disposition home or self-care (01) ==
LOC: SDC 06:09
PROVIDERS: ATTEND Surgery
DX: K62.0 Anal polyp (principal); K63.89 Other specified diseases of intestine
CPT/HCPCS: 87081